=== PATIENT | female | born 1950 | race Two or more races ===

== ENCOUNTER → 2016-09-24 | Outpatient (CLI) | payer SELFPAY ==
[2016-09-24 09:16] LABS: ANION GAP 10 mmol/L (8-16); CALCIUM, TOTAL 9.2 mg/dL (8.8-10.5); CARBON DIOXIDE 26 mmol/L (22-29); CHLORIDE 106 mmol/L (98-107); CREATININE 0.74 mg/dL (0.60-1.30); GLOMERULAR FILTR. RATE CALC > 60 mL/min (>60); POTASSIUM 3.9 mmol/L (3.5-5.1); SODIUM SERUM 142 mmol/L (136-145); UREA NITROGEN, BLOOD 11 mg/dL (7-18)
== END | disposition home or self-care (01) ==
LOC: LABMN 08:57
PROVIDERS: ATTEND Internal Medicine Cardiovascular Disease
DX: I11.0 Hypertensive heart disease with heart failure (principal); I50.9 Heart failure, unspecified; E11.8 Type 2 diabetes mellitus with unspecified complications; E55.9 Vitamin D deficiency, unspecified